=== PATIENT | female | born 1995 ===

== ENCOUNTER 2018-06-15 16:14 | Emergency (ER) | payer MEDICAID, OTHER ==
[2018-06-15 16:28] VITALS: BP 137/84; PULSE 110; RESP 18; TEMP 99.6; O2SAT 99
--- NOTE | 2018-06-15 16:51 | C.PDOC ---
History Of Present Illness 23 year old female presents to the ER with a complaint of a clogging sensation to the bilateral ears, associated with sore throat. Denies fever or chills. Time Seen by Provider: 06/15/18 16:29 Chief Complaint (Nursing): ENT Problem History Per: Patient History/Exam Limitations: None Onset/Duration Of Symptoms: Days Quality (Ear): Other (Clogging sensation) Symptoms Have Been: Continuous Past Medical History Reviewed: Historical Data, Nursing Documentation, Vital Signs Vital Signs: Last Vital Signs Temp 99.6 F 06/15/18 16:19 Pulse 110 H 06/15/18 16:19 Resp 18 06/15/18 16:19 BP 137/84 06/15/18 16:19 Pulse Ox 99 06/15/18 16:19 Family History: States: Unknown Family Hx - Social History Hx Alcohol Use: Yes Hx Substance Use: No - Immunization History Hx Tetanus Toxoid Vaccination: No Hx Influenza Vaccination: No Hx Pneumococcal Vaccination: No Review Of Systems Constitutional: Negative for: Fever, Chills ENT: Positive for: Throat Pain, Other (Clogged ears) Respiratory: Negative for: Cough Physical Exam - Physical Exam Appears: Non-toxic Skin: Normal Color, Warm, Dry Head: Atraumatic, Normacephalic Eye(s): bilateral: Normal Inspection Ear(s): Bilateral: Other (Cerumen impaction) Nose: Normal Oral Mucosa: Moist Throat: Normal, No Erythema, No Exudate Neck: Normal, Supple Neurological/Psych: Oriented x3, Normal Speech ED Course And Treatment O2 Sat by Pulse Oximetry: 99 (Room air) Pulse Ox Interpretation: Normal Progress Note: Patient is resting comfortably in the ER in no acute distress, vitals are stable, will discharge home with Rx and advise to follow up with ENT. Disposition - Disposition Referrals: Lane White MD [Staff Provider] - Disposition: HOME/ ROUTINE Disposition Time: 16:47 Condition: STABLE Additional Instructions: Follow up with PMD/ENT within 1-2 days. Return to ED if feel worse. 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 - Scribe Statement The provider has reviewed the documentation as recorded by the Scribe Jae Asencio All medical record entries made by the Tammiibe were at my direction and personally dictated by me. I have reviewed the chart and agree that the record accurately reflects my personal performance of the history, physical exam, medical decision making, and the department course for this patient. I have also personally directed, reviewed, and agree with the discharge instructions and disposition.
== END 2018-06-15 17:20 | disposition home or self-care (01) ==
LOC: C.ER 16:14
DX: H61.23 Impacted cerumen, bilateral (principal)